=== PATIENT | female | born 1990 | race African-American/Black ===

== ENCOUNTER 2016-09-18 02:52 | Emergency (ER) | payer OTHER ==
[~2016-09-18] VITALS: Ht 160 cm; Wt 81.6 kg
[2016-09-18 02:54] VITALS: BP 129/91
[2016-09-18] MEDS ORDERED: OXYcodone/APAP 5/325MG TABLET ONE (03:17)
[2016-09-18] MEDS ORDERED: KETOROLAC 30 MG/1 ML ONE (03:17)
[2016-09-18] MEDS ORDERED: ONDANSETRON ODT 4 MG ONE ×2 (03:17→05:18)
[2016-09-18] MEDS ORDERED: OXYcodone/APAP 10/325MG TABLET ONE (03:24)
[2016-09-18 03:28] LABS: HCG UR OBC PASS
[2016-09-18] MEDS ORDERED: OXYcodone/APAP 10/325MG TABLET PO ONE (03:30)
[2016-09-18] MEDS ORDERED: ONDANSETRON ODT 4 MG PO ONE ×2 (03:30→05:30)
[2016-09-18] MEDS ORDERED: KETOROLAC 30 MG/1 ML IM ONE (03:30)
[2016-09-18 03:44] LABS: ASPARTATE AMINO TRANSFERASE 19 U/L (15-37); BLOOD UREA NITROGEN 17 mg/dL (7-18)
[2016-09-18] MEDS ORDERED: TAMSULOSIN 0.4 MG CAP.ER.24H ONE (04:35)
[2016-09-18] MEDS ORDERED: HYDROmorphone 1 MG/ML, 1ML ONE (04:35)
[2016-09-18] MEDS ORDERED: TAMSULOSIN 0.4 MG CAP.ER.24H PO ONE (05:00)
[2016-09-18] MEDS ORDERED: HYDROmorphone 1 MG/ML, 1ML IM ONE (05:00)
== END 2016-09-18 06:09 | disposition home or self-care (01) ==
LOC: ED 04:14
DX: N20.2 Calculus of kidney with calculus of ureter (principal); N13.30 Unspecified hydronephrosis; R31.9 Hematuria, unspecified; N13.2 Hydronephrosis with renal and ureteral calculous obstruction
CPT/HCPCS: 36415; 76770; 80053; 81001; 81025; 83690; 84703; 85025; 87086; 96372; 99285; J1170; J1885; Q0162